=== PATIENT | male | born 1970 | race Caucasian/White ===

== ENCOUNTER 2021-12-15 15:18 | Emergency (ER) | payer SELFPAY ==
[~2021-12-15] VITALS: Ht 180.3 cm; Wt 98.9 kg
[2021-12-15] MEDS ORDERED: METFORMIN HCL500 MG PO (17:23)
[2021-12-15] MEDS ORDERED: CEPHALEXIN500 M1 PO (17:23)
== END 2021-12-15 18:21 | disposition home or self-care (01) ==
LOC: ED 15:18
DX: S90.852A Superficial foreign body, left foot, initial encounter (principal); W45.8XXA Other foreign body or object entering through skin, initial encounter; E11.9 Type 2 diabetes mellitus without complications; Z79.84 Long term (current) use of oral hypoglycemic drugs
CPT/HCPCS: 99283